=== PATIENT | female | born 1945 | race Caucasian/White ===

== ENCOUNTER 2017-04-08 14:47 | Inpatient (IN) | payer MEDICARE ==
[~2017-04-08] VITALS: Ht 165.1 cm; Wt 51.8 kg
--- NOTE | ~2017-04-08 | CATH ---
Cardiac Diagnostic + PCI Report Demographics Patient Name SANDEEP Herring Gender Female Date of 1945 Age 71 year(s) Patient Number [id number] Date of Study 04/08/2017 Visit Number [id number] Room Number G6318 [place] [id number] Ht 173 cm Wt 59.1 kg Referring Renita Bryan Zafar Primary Physician Physician Performing Efstratiou Secondary Physician Physician Pratik Samuels MD Diagnostic Efstratiou Assisting Physician Physician Pratik Samuels MD Interventional Efstratiou Physician Personal Care Worker Physician Pratik Samuels MD Findings and Conclusions Diagnostic Findings and Conclusion Culprit for anterior STEMI is ostial LAD which has recanalized after heparin and aspirin. Diagnostic Recommendations PCI to LAD. Interventional Findings and Conclusion Successful GAMAL to ostial LAD after scoring balloon and thrombus aspiration Interventional Recommendations ASA and Brilinta. Smoking cessation. Procedure Description The patient was brought to the diagnostic cardiac catheterization-EP laboratory by emergency personal. Physician deemed procedure as EMERGENT. The planned puncture-incision site(s) were shaved and prepped with ChloraPrep and draped in the usual sterile manner. Supplemental oxygen was delivered by a registered nurse under physician guidance. Surface ECG rhythm, blood pressure measurement, and pulse oximetry were monitored throughout the procedure. Arterial access. The access site was infiltrated with lidocaine. The vessel was entered with the Seldinger technique. A sheath was advanced into the vessel and used for catheter placement. Selective left coronary angiography. A catheter was advanced into the left coronary vessel ostium under Fluoroscopic guidance. Contrast was injected by hand. Images were obtained in multiple projections. Selective right coronary angiography. A catheter was advanced into the right coronary vessel ostium under fluoroscopic guidance. Contrast was injected by hand. Images were obtained in multiple projections. Angioplasty and Stent Placement: A guiding catheter was used to intubate the vessel. A 0.14 wire was then used to cross the lesion. A balloon catheter was placed across the lesion and inflated. The balloon catheter was then removed. A Drug Eluting Stent was placed and inflated. Post placement angiograms were performed. Arterial artery hemostasis was achieved. The patient was transferred to a regular nursing floor via cart accompanied by a nurse. The patient left the laboratory in stable condition. Diagnostic Cath Status: Emergency Interventional Cath Status: Emergency Procedure Procedure Type Diagnostic procedure:Angiography:, Coronary Angios PCI procedure:Drug Eluting Coronary Stent:, LAD Indications: Acute PR. Angiographic Findings Dominance: Right Cardiac Arteries and Lesion Findings LMCA: Patent. LAD: Lesion on Prox LAD: Ostial.90% stenosis 20 mm length reduced to 0%. Pre procedure HERNANDEZ III flow was noted. Post Procedure HERNANDEZ III flow was present. The guidewire cross was successful.The lesion was diagnosed as a high risk lesion.Culprit lesion. Devices used - Whisper Wire .014 x 190. Number of passes: 1. - Xpress-Way Aspiration Catheter. Number of passes: 1. - Angiosculpt Balloon 2.5 x 15. Diameter: 2.5 mm. Length: 15 mm. 2 inflation(s) to a max pressure of: 18 danae. - Promus Premier 3.0 x 20 Stent. 1 inflation(s) to a max pressure of: 14 danae. Lesion on 1st Diag: Ostial.30% stenosis . LCx: OM patent. Lesion on Prox CX: Proximal subsection.20% stenosis . RCA: Lesion on Mid RCA: Mid subsection.20% stenosis . Coronary Tree Procedure Data Procedure Date Date: 04/08/2017Start: 03:14 PMEnd: 04:08 PM Entry Locations - Retrograde Percutaneous access was performed through the Right Radial artery (Primary location). A 6 Fr sheath was inserted. Hemostasis was successfully obtained using Mechanical Compression. Closure Comments: 16 ml of air in R. Band by Aga Stone. . Procedure Medications Order and Administration + + +-------+-------+ !Time !Medication !Dosage !Route ! + + +-------+-------+ !04/08/2017 !PAE Radial Cocktail: Heparin 5000 units, ! !I.A. ! !03:18 PM !Nitroglycerin 200mcg, Verapamil 3 mg ! ! ! ! !(ACC_3) ! ! ! + + +-------+-------+ !04/08/2017 !Integrilin (ACC_7) !20 mg !I.C. ! !03:28 PM ! ! ! ! + + +-------+-------+ !04/08/2017 !Nitroglycerin !200 mcg!I.C. ! !03:46 PM ! ! ! ! + + +-------+-------+ !04/08/2017 !Brilinta (Ticagrelor) (ACC_20) !180 mg ! ! !03:49 PM ! ! ! ! + + +-------+-------+ Devices Used - A6 Fr. BS JR 4 Diag. Catheterwas used for:Right coronary angiography. - A6 Fr. XBLAD 3.5 Guide Catheterwas used for:Left coronary angiography. - A6 Fr. XBLAD 3.5 Guide Catheterwas used for:LAD Intervention. - A6 Fr. BS JL 3.5 Diag. Catheter. Comments: Not used per , interventional guide used instead.. Contrast Material - Isovue 184142 ml Fluoroscopy Time: Diagnostic: 9:12 minutes. Total: 9:12 minutes. Fluoroscopy Dose: Diagnostic: 522 mGy. Total: 522 mGy. Estimated Blood Loss: 10 ml. Additional [facility] PCI Information PCI Indication:Immediate PCI for STEMI. Medical History Allergies - Other:(zofran). Risk Factors The patient risk factors include:Current/Recent(w/in 1 year) tobacco use. Admission Data Admission Date: 04/08/2017 Admission Time: 03:00 PM Admit Source: Transfer [facility] Insurance Payors: Medicare. Admission Medications + +------+------+ + + + + !Medication !Dosage!Times !Last !Last !Administered !Comments ! ! ! !Per !Delivery !Delivery ! ! ! ! ! !Day !Date !Time ! ! ! + +------+------+ + + + + !Aspirin ! ! ! ! ! ! ! !(any) ! ! ! ! ! ! ! + +------+------+ + + + + !Statin (any)! ! ! ! ! ! ! + +------+------+ + + + + !Nitrates (iv! ! ! ! ! ! ! !or buccal) ! ! ! ! ! ! ! + +------+------+ + + + + Clinical Evaluation Leading to Procedure - The patient's CAD presentation was assessed as: STEMI.The symptom onset was first noted on 04/08/2017 01:00 PM(time was estimated). Snapshots Hemodynamics Condition: Rest O2 Consumption: Estimated: 160.05Heart Rate: 75 bpm Pressures (mmHg) +-----+ + !Site !Pressure ! +-----+ + !AO !104/53 (76) ! +-----+ + Shunts Oxygen Values O2 Capacity 179.52 O2 Consumption 160.05 Signatures dtt: Timmy Muhammad dtd: 04/08/17 1514 Physician Self Edit
--- NOTE | ~2017-04-08 | HP ---
PATIENT'S NAME: JORGE HOPKINS [facility] AGE: 71 Y [address] ROOM: [facility] [place] [id number] LOCATION: GPCU ADMIT DATE: 04/08/2017 History & Physical DISCHARGE DATE: FAMILY PHYSICIAN: MARC ROMAN MD ATTENDING PHYSICIAN: Timmy Muhammad DATE OF SERVICE: HISTORY OF PRESENT ILLNESS: This is a 71-year-old female who presented to the [place] [facility] Department with abrupt onset of chest pain with radiation to both of her arms. Her EKG there showed ST elevation and she was transferred emergently per flight to [facility] for an emergent catheterization by Dr. Muhammad. At the time of this dictation, the patient is currently status post drug-eluting stent to the ostial LAD. The patient's past medical history includes bronchitis and arthritis. PAST SURGICAL HISTORY: She has past surgical history of a laparoscopic cholecystectomy, appendectomy, hysterectomy, and bowel surgery. PAST MEDICAL HISTORY: Hypothyroidism and as listed in the HPI. FAMILY HISTORY: No family medical history noted. Both of her parents due to advanced age and she has 3 brothers all without medical diagnoses. SOCIAL HISTORY: The patient is a current daily cigarette smoker. She smoked half a pack per day for the last 45 years. She denies alcohol or illicit drug use. HOME MEDICATIONS: 1. Levothyroxine 100 mcg p.o. daily. 2. Ativan 2 mg p.o. daily. MEDICATION ALLERGIES: Zofran causing itching. REVIEW OF SYSTEMS: Pertinent positive review of systems listed in HPI. The patient also had complaints of weakness and cough. All other review of systems evaluated and negative. PHYSICAL EXAMINATION: PATIENT'S NAME: JORGE HOPKINS [facility] AGE: 71 Y [address] ROOM: [facility] [place], [place] [address] LOCATION: GPCU ADMIT DATE: 04/08/2017 History & Physical DISCHARGE DATE: FAMILY PHYSICIAN: MARC ROMAN MD ATTENDING PHYSICIAN: Timmy Muhammad VITAL SIGNS: Temp 98.0, pulse 85, respirations 20, blood pressure 119/57, O2 saturation 93% on room air. The patient weighs 54 kg. SKIN: [place], warm, and dry. EYES: Sclerae clear. No xanthelasma. ENT: Oral mucosa is pink and moist. No jugular venous distention. No carotid bruits. CHEST: Respirations are even and unlabored. LUNGS: Clear to auscultation. HEART: Regular rate and rhythm. Normal S1, S2. No murmurs, rubs, or gallops. ABDOMEN: Soft nontender. MUSCULOSKELETAL: Gait is normal. EXTREMITIES: Peripheral pulses palpable. No clubbing, cyanosis, or edema. PSYCHIATRIC: Alert oriented. Mood and affect are appropriate. DIAGNOSTICS: EKG shows an anterior wall NC. IMPRESSION AND PLAN: Per Dr. Muhammad: 1. ST elevated myocardial infarction. Currently status post a drug-eluting stent to the ostial LAD. We will continue to monitor her today and trend cardiac enzymes as well as check an echocardiogram to fully evaluate ejection fraction as well as look for wall motion abnormalities. She will most likely be able to discharge home in the a.m. We will continue to monitor, evaluate, and treat as appropriate. Thank you for allowing [facility] to interact in the care of patient. CARLY TA APRN FOR [facility] QUINONES/balwinder /[id number] D: [id number] T: [id number] HISTORY & PHYSICAL
--- NOTE | ~2017-04-08 | ECHO ---
Transthoracic Echocardiography Report (TTE) Demographics Patient Name JORGE HOPKINS Date of Study 04/09/2017 Patient Number [id number] Visit Number [id number] Date of 1945 Room Number G6318 Gender Female Number Age 71 year(s) Referring Taran Moon MD System Safety Manager Isabella RVT, RDCS Physician [place]ully Physician Interpreting Efstratiou Panayotis A B2B Sales Manager Physician Supervising Ordering Efstratiou Panayotis A MD/MLP Physician Nurse Stress Sericulturist Conclusions Contractility Score Summary At rest the following contractility abnormalities were noted: Hypokinesis of the Mid france-septal and the Mid inferior segments; Akinesis of the Apical septal, the Apical lateral and the Apical cap segments. Contractility of all other segments appeared normal. Summary The estimated left ventricular ejection fraction is 40%. Mild concentric left ventricular hypertrophy. Diastolic assessment reveals Grade I diastolic dysfunction. Mild mitral regurgitation by color Doppler. Mild tricuspid regurgitation by color Doppler. There is mild pulmonary hypertension. The pulmonary pressure (RVSP) is 38 mmHg. Small global pericardial effusion. Procedure Type of Study TTE procedure:2D Echocardiogram, M-Mode, Doppler , Color Doppler. Procedure Date Date: 04/09/2017 Start: 10:28 AM Study Location: Inpatient Portable Technical Quality: Adequate visualization Additional Indications:STEMI, post PTCA Appropriate Use Criteria: 9 Patient Status: Routine HR: 76 bpm BP: 109/58 mmHg Allergies - Other:(zofran). M-Mode/2D Measurements LV Diastolic Dimension: 4.04 cm LV Systolic Dimension: 2.86 cm LV Septum Diastolic: 1.35 cm LV PW Diastolic: 0.97 cm AO Root Dimension: 2.5 cm Cardiac Output: 2.61 l/min AV Cusp Separation: 1.3 cm RV Diastolic Dimension: 1.73 cm LA volume: 11 ml LVOT: 1.9 cm RV Base: 1.94 cm LVOT VTI: 12.1 cm RV Mid: 1.48 cm LV Stroke volume: 34.29 ml TAPSE: 1.69 cm TDI-S': 17.1 cm/s Doppler Measurements AV Peak Velocity: 0.83 m/s MV Peak E-Wave: 0.65 m/s AV Peak Gradient: 2.77 mmHg MV Peak A-Wave: 0.7 m/s AV Mean Gradient: 2 mmHg MV E/A Ratio: 0.93 LVOT Peak Velocity: 0.51 m/s MV P1/2t: 38 msec TR Gradient:35.28 mmHg PV Peak Velocity: 0.82 m/s Estimated RAP:3 mmHg PV Peak Gradient: 2.7 mmHg Estimated RVSP: 38 mmHg Estimated PASP: 38.28 mmHg E' Septal Velocity: 0.06 m/s A' Septal Velocity: 0.09 m/s E' Lateral Velocity: 0.05 m/s A' Lateral Velocity: 0.08 m/s Findings Left Ventricle Mild concentric left ventricular hypertrophy. Diastolic assessment reveals Grade I diastolic dysfunction. Right Ventricle Normal right ventricle structure and function. Left Atrium Normal left atrial size. Right Atrium Normal right atrial size. Mitral Valve Mild mitral regurgitation by color Doppler. Aortic Valve Normal aortic valve structure and function. Tricuspid Valve Mild tricuspid regurgitation by color Doppler. There is mild pulmonary hypertension. The pulmonary pressure (RVSP) is 38 mmHg. Pulmonic Valve Mild pulmonic valve regurgitation by color Doppler. Pericardial Effusion Small global pericardial effusion. Pleural Effusion No evidence of pleural effusion. Contractility Score LV regional wall motion:(0-Non visualized 1-Normal 2-Hypokinesis 3-Akinesis 4-Dyskinesis 5-Aneurysm) Signature dtt: Timmy Muhammad dtd: 04/09/17 1028 Physician Self Edit
[2017-04-08] MEDS ORDERED: LEVOTHROID (S100 MCG PO (17:39)
[2017-04-08] MEDS ORDERED: ATIVAN 1 MG1 MG PO (17:40)
[2017-04-09 05:02] LABS: ALBUMIN 2.6 gm/dL (3.5-5.0); ALK PHOS 65 IU/L (33-138); ALT 13 IU/L (12-78); ANION GAP 11.8 (10.0-19.0); AST 13 IU/L (10-40); BLOOD UREA NITROGEN 10 mg/dL (6-24); CALCIUM 7.8 mg/dL (8.5-10.5); CHLORIDE 114 mMol/L (96-110); CO2 21 mMol/L (22-32); CREATININE 0.6 mg/dL (0.5-1.1); ESTIMATED GFR (MDRD EQUATION) > 60; POTASSIUM 3.8 mMol/L (3.7-5.1); SODIUM 143 mMol/L (135-145); TOTAL BILIRUBIN 0.5 mg/dL (0.0-1.5); TOTAL PROTEIN 5.7 g/dL (6.0-8.4)
[2017-04-10] MEDS ORDERED: CHILDREN'S CHEW81 MG PO (11:32)
[2017-04-10] MEDS ORDERED: LIPITOR80 MG PO (11:33)
[2017-04-10] MEDS ORDERED: VASOTEC2.5 MG PO (11:34)
[2017-04-10] MEDS ORDERED: BRILINTA90 MG PO (11:36)
[2017-04-10] MEDS ORDERED: LOPRESSOR25 MG PO (11:36)
[2017-04-10] MEDS ORDERED: TYLENOL325 MG PO (11:38)
[2017-04-10] MEDS ORDERED: NITROSTAT0.4 MG SL (11:39)
[2017-04-10] MEDS ORDERED: COUMADIN **IA2.5 MG PO (11:41)
[2017-04-10] MEDS ORDERED: PROTONIX40 MG PO (11:42)
[2017-04-10] MEDS ORDERED: ALDACTONE25 MG PO (11:42)
[2017-04-10] MEDS ORDERED: NICODERM CQ1 EACH TOP (12:04)
== END 2017-04-10 13:30 | disposition disaster alternative care site (69) | DRG 247 ==
LOC: UNDOADMIN 14:47 → GPCU 14:47
PROVIDERS: ADMIT Internal Medicine Cardiovascular Disease
PROC: 027034Z Dilation of Coronary Artery, One Artery with Drug-eluting Intraluminal Device, Percutaneous Approach (ICD-10-PCS; principal; 2017-04-08)
PROC: B2111ZZ Fluoroscopy of Multiple Coronary Arteries using Low Osmolar Contrast (ICD-10-PCS; principal; 2017-04-08)
DX: I21.09 ST elevation (STEMI) myocardial infarction involving other coronary artery of anterior wall (principal); F17.200 Nicotine dependence, unspecified, uncomplicated; I21.02 ST elevation (STEMI) myocardial infarction involving left anterior descending coronary artery; Z90.49 Acquired absence of other specified parts of digestive tract; I25.10 Atherosclerotic heart disease of native coronary artery without angina pectoris
CPT/HCPCS: C1725; C1757; C1769; C1874; C1887; C1894; C9606; J1327; J1644; J1650; J2270; J2405; J7030; Q9967

== ENCOUNTER → 2017-04-08 | Outpatient (CLI) | payer MEDICARE ==
[~2017-04-08] MED LIST: ALDACTONE25 MG PO; ATIVAN 1 MG1 MG PO; BRILINTA90 MG PO; CHILDREN'S CHEW81 MG PO; COUMADIN **IA2.5 MG PO; LEVOTHROID (S100 MCG PO; LIPITOR80 MG PO; LOPRESSOR25 MG PO; NICODERM CQ1 EACH TOP; NITROSTAT0.4 MG SL; PROTONIX40 MG PO; TYLENOL325 MG PO; VASOTEC2.5 MG PO
== END | disposition disaster alternative care site (69) ==
LOC: GAIR 14:35
DX: I21.09 ST elevation (STEMI) myocardial infarction involving other coronary artery of anterior wall (principal); Z79.899 Other long term (current) drug therapy
CPT/HCPCS: A0422; A0431; A0436